=== PATIENT | female | born 1980 | race Caucasian/White ===

== ENCOUNTER 2018-10-02 17:10 | Emergency (ER) | payer OTHER ==
[~2018-10-02] VITALS: Ht 172.7 cm; Wt 90.7 kg
[2018-10-02 17:15] VITALS: BP_SYST 154
--- NOTE | 2018-10-02 17:15 | NUR ---
Pt was brought in by [facility] and sent to the waiting room in stable condition
== END 2018-10-02 18:28 | disposition left against medical advice (07) ==
LOC: SED 17:10
DX: F41.9 Anxiety disorder, unspecified (principal); R07.89 Other chest pain; Z53.21 Procedure and treatment not carried out due to patient leaving prior to being seen by health care provider